=== PATIENT | male | born 1950 | race African-American/Black ===

== ENCOUNTER 2017-04-30 09:36 | Outpatient (CLI) | payer OTHER ==
--- NOTE | 2017-04-30 13:26 | ULT ---
BILATERAL UPPER EXTREMITY VENOUS DOPPLER ULTRASOUND FOR DIALYSIS ACCESS: Date: 04/30/17 HISTORY: End-stage renal disease, chronic renal failure. FINDINGS: RIGHT UPPER EXTREMITY: The right cephalic vein is not visualized in the proximal and mid arm. It measures 8.0 mm in the dist al arm, 8.0 mm in the antecubital fossa, 1.2 mm in the proximal forearm, 1.3 mm in the mid forearm, a nd 1.2 mm in the distal forearm. The right basilic vein measures 0.7 mm in the proximal arm, 0.8 mm in the mid arm, 0.6 mm in the dist al arm, 1.0 mm in the antecubital fossa, 1.1 mm in the proximal forearm, and 1.1 mm in the mid forear m. The basilic vein at the distal forearm is not visualized. The right brachial artery measures 7.2 mm, radial artery measures 3.5 mm, and ulnar artery measures 2 .2 mm. LEFT UPPER EXTREMITY: The left cephalic vein measures 0.9 mm in the proximal arm, 1.2 mm in the mid arm, 1.8 mm in the dist al arm, 0.9 mm in the antecubital fossa, 1.0 mm in the proximal forearm, 1.1 mm in the mid forearm, a nd 0.8 mm in the distal forearm. The left basilic vein measures 1.9 mm in the proximal arm, 2.2 mm in the mid arm, 1.6 mm in the dista l arm, 1.5 mm in the antecubital fossa, 0.6 mm in the proximal forearm, 0.7 mm in the mid forearm, an d 1.0 mm in the distal forearm. The left brachial artery measures 6.8 mm, radial artery measures 4.1 mm, and ulnar artery measures 3. 4 mm. POS: [facility]
== END 2017-04-30 09:37 | disposition home or self-care (01) ==
LOC: ULT 09:36
PROVIDERS: ATTEND Internal Medicine Nephrology
DX: N18.6 End stage renal disease (principal)
CPT/HCPCS: 93970; G0365